=== PATIENT | male | born 1945 | race Caucasian/White ===

== ENCOUNTER 2017-12-28 08:55 | Day surgery (SDC) | payer MEDICARE, BC ==
[2017-12-28] VITALS (17 sets, daily range): BP systolic 99–147; BP diastolic 60–109
[~2017-12-28] VITALS: Ht 177.8 cm; Wt 76.6 kg
[~2017-12-28 08:55] MED LIST: CHOL10002 PO; ENZY1CAP5 PO; FERR325T39 PO; LACT1CAP73 PO; MAGN400C PO; MULT-1085 PO; OMEG1CAP2 PO; VITA1CAP62 PO; VITC500T PO; [UNRECOGNIZED DRUG - CODE] PO
[2017-12-28] MEDS ORDERED: normal saline 1000ml 1,000 ML IV SCH (09:40)
[2017-12-28] MEDS ORDERED: LIDOcaine 1%/PF 5ML 10 MG/ML VIAL SQ ONE (11:10)
[2017-12-28] MEDS ORDERED: fentaNYL/PF 50MCG/1 ML 2ML syringe IV PRN (11:10)
[2017-12-28] MEDS ORDERED: midazolam 2 mg/2 ml injection IV PRN (11:10)
[2017-12-28] MEDS ORDERED: midazolam 2 mg/2 ml injection ONE ×2 (11:12→11:53)
[2017-12-28] MEDS ORDERED: fentaNYL/PF 50MCG/1 ML 2ML syringe ONE ×2 (11:12→11:53)
[2017-12-28] MEDS ORDERED: LEVO25TA2 PO (14:08)
[2017-12-28] MEDS ORDERED: MELA3TAB PO (14:08)
[2017-12-28] MEDS ORDERED: LEUP3.753 IM (14:08)
[2017-12-28] MEDS ORDERED: HYDR-3965 PO (14:08)
[2017-12-28] MEDS ORDERED: BICA50TA48 PO (14:08)
== END 2017-12-28 13:45 | disposition home or self-care (01) ==
LOC: SSTAY O 08:55
PROVIDERS: ATTEND Radiology Diagnostic Radiology
DX: M89.8X8 Other specified disorders of bone, other site (principal); I25.10 Atherosclerotic heart disease of native coronary artery without angina pectoris; E78.5 Hyperlipidemia, unspecified; G47.33 Obstructive sleep apnea (adult) (pediatric); M19.90 Unspecified osteoarthritis, unspecified site; E03.9 Hypothyroidism, unspecified; F10.10 Alcohol abuse, uncomplicated; Z98.41 Cataract extraction status, right eye; Z85.828 Personal history of other malignant neoplasm of skin; Z85.830 Personal history of malignant neoplasm of bone; Z90.79 Acquired absence of other genital organ(s); Z85.46 Personal history of malignant neoplasm of prostate; Z85.51 Personal history of malignant neoplasm of bladder; Z88.0 Allergy status to penicillin; Z88.2 Allergy status to sulfonamides; Z91.048 Other nonmedicinal substance allergy status; Z88.1 Allergy status to other antibiotic agents; Z91.018 Allergy to other foods; Z91.011 Allergy to milk products; Z95.0 Presence of cardiac pacemaker; Z79.891 Long term (current) use of opiate analgesic; Z92.21 Personal history of antineoplastic chemotherapy; Z79.899 Other long term (current) drug therapy; Z98.890 Other specified postprocedural states; Z83.6 Family history of other diseases of the respiratory system; Z80.9 Family history of malignant neoplasm, unspecified; Z83.3 Family history of diabetes mellitus; Z83.42 Family history of familial hypercholesterolemia
CPT/HCPCS: 20220; 77012; 99152; 99153; J2250; J3010; 88305; 88342; J7030